=== PATIENT | female | born 1965 | race Caucasian/White ===

== ENCOUNTER → 2017-09-17 16:44 | Outpatient (CLI) | payer OTHER | END | disposition home or self-care (01) | LOC: D.MAMMO 16:00 | DX: Z12.31 Encounter for screening mammogram for malignant neoplasm of breast (principal) ==

== ENCOUNTER → 2017-11-07 19:38 | Outpatient (CLI) | payer OTHER | END | disposition home or self-care (01) | LOC: D.MAMMO 14:00 | DX: M41.9 Scoliosis, unspecified (principal) ==

== ENCOUNTER 2018-06-02 08:00 | Outpatient (CLI) | payer OTHER | END 2018-06-02 09:00 | disposition home or self-care (01) | LOC: D.MAMMO 08:00 | DX: R92.8 Other abnormal and inconclusive findings on diagnostic imaging of breast (principal) ==

== ENCOUNTER 2019-06-30 10:49 | Inpatient (IN) | payer OTHER ==
[~2019-06-30] VITALS: Ht 165.1 cm; Wt 100.0 kg
[2019-06-30] VITALS (7 sets, daily range): BP systolic 99–116; BP diastolic 58–69; Ht 165.1 cm; Wt 100.0 kg
[2019-06-30 11:33] LABS: CALC OSMOLALITY 272 mosm/kg (275-300); CALCIUM 8.6 mg/dL (8.5-10.1); CHLORIDE - SERUM 105 mmol/L (98-107); CREATININE - SERUM 0.7 mg/dL (0.6-1.3); GLUCOSE 110 mg/dL (74-106); SODIUM 137 mmol/L (136-145); UREA NITROGEN 8 mg/dL (7-18); eGFR NON AFRICAN AMERICAN > 90 mL/min (90-120)
[2019-06-30 11:39] LABS: ALBUMIN 3.3 g/dL (3.4-5.0); ALKALINE PHOSPHATASE 80 U/L (30-120); ALT (SGPT) 29 U/L (10-68); BILIRUBIN - TOTAL 0.22 mg/dL (0.2-1.3); PROTEIN - SERUM 7.3 g/dL (6.4-8.2)
[2019-06-30 11:44] LABS: BASOPHILS 0.2 % (0-2); EOSINOPHILS 0.2 % (0-7); HEMATOCRIT 41.6 % (36.0-48.0); HEMOGLOBIN 13.7 g/dL (12-16); IMMATURE GRANULOCYTES 0.2 % (0-5); LYMPHOCYTES 9.4 % (15-50); MCH 31.8 pg (26.0-34.0); MCHC 32.9 g/dL (31.0-37.0); MCV 96.5 fL (80.0-100.0); MEAN PLATELET VOLUME 11.2 fL (7.4-10.4); MONOCYTES 8.7 % (2-11); NEUTROPHILS 81.3 % (40-80); PLATELET COUNT 165 10x3/uL (130-400); RBC 4.31 10x6/uL (4.00-5.40); WBC 5.9 10x3/uL (4.8-10.8)
--- NOTE | 2019-06-30 12:57 | NUR ---
NASAL SWAB OBTAINED,, LABELED AT BS AND SENT TO LAB
--- NOTE | 2019-06-30 13:27 | NUR ---
TO CT VIA STRETCHER WITH ARMED GUARD
--- NOTE | 2019-06-30 14:20 | NUR ---
BC'S DRAWN X 2 PER TRAUMA THERAPIST THEN ABCHANELL INITIATED
--- NOTE | 2019-06-30 15:03 | NUR ---
REPORT TO FAY RN
--- NOTE | 2019-06-30 16:30 | NUR ---
AZITHROMYCIN 500MG IVPB COMPLETED ON 06/30/19 @ 8425
--- NOTE | 2019-06-30 17:10 | NUR ---
PT TRANSPORTED TO ROOM #2226, CONDITION STABLE. NS INFUSING 2 100 ML/HR UPON TRANSPORT TO ROOM
[2019-06-30] MEDS ORDERED: LOVASTATIN20 MG PO (17:24)
[2019-06-30] MEDS ORDERED: LEVOTHYROXINE137 MCG PO (17:24)
[2019-07-01 02:53] VITALS: BP 90/42
--- NOTE | 2019-07-01 03:42 | NUR ---
PT RESTING IN BED. EYES CLOSED. NO SIGNS OF DISTRESS. BREATHING EVEN AND UNLABORED. IV SITE LT AC DRESSING CLEAN DRY AND INTACT. NO SIGNS OF INFECTON OR INFULTRATION. BOWEL SOUNDS ACTIVE. SKIN CLEAN DRY AND INTACT. 2LO2 NASAL CANNULA. WILL CONTINUE PLAN OF CARE. CALL LIGHT IN REACH. BED LOWERED AND LOCKED. BED RAILS UPX2.
--- NOTE | 2019-07-01 05:03 | NUR ---
I have reviewed this patient and I concur with the Shift Assessment completed by the Licensed Practical Nurse today this shift.
[2019-07-01 05:57] VITALS: BP 117/63
--- NOTE | 2019-07-01 07:59 | NUR ---
ALERT AND ORIENTED. LLL DIMINISHED. HEART SOUNDS S1 AND S2 HEARD IN ALL YEUNG. BOWEL SOUNDS ACTIVE X 4. SKIN INTACT WITHOUT REDNESS. O2 IN PLACE AT 2L NC. IV TO LEFT AC PATENT WITHOUT REDNESS. BED LOW. CALL RAMIREZ AND PERSONAL ITEMS IN REACH. WILL CONTINUE TO MONITOR.
--- NOTE | 2019-07-01 08:17 | HP ---
PATIENT: KAREN BURGESS MEDICAL RECORD: [id number] ACCOUNT: [id number] LOCATION:[id number] : 63 ADMISSION DATE: 06/30/19 PCP: POPPY ESCAMILLA MD HISTORY AND PHYSICAL EXAMINATION DATE OF ADMISSION: 06/30/2019 CHIEF COMPLAINT: "I feel crappy." HISTORY OF PRESENT ILLNESS: This is a 54-year-old female who went to a local walk-in clinic today. She states she had acute onset of feeling really bad yesterday. She had a temperature up to 102. She felt bad, stayed in bed, went to a walk-in clinic on [facility] today. They did a flu swab there that was negative. Her O2 sat was reportedly 89%. She was short of breath. She was sent to the ER today where her influenza test was again negative. Blood work was fairly normal. D-dimer was a little elevated at 0.7. She had a CTA of her chest with PE protocol showing no PE, but there was minimal infiltrate in the left upper lobe consistent with early pneumonia and with her shortness of breath, cough and generalized malaise. She is admitted for left upper lobe pneumonia. PAST MEDICAL AND SURGICAL HISTORY: Hypothyroidism. She has had high cholesterol in the past. She has scoliosis. PAST SURGICAL HISTORY: Cholecystectomy, June fundoplication. ALLERGIES: CODEINE CAUSED HER THROAT TO CONSTRICT. CURRENT MEDICATIONS: Lovastatin 20 mg daily and levothyroxine 137 mcg daily. HABITS: Does not smoke, drink or partake of illicit drug use. SOCIAL HISTORY: She is , lives alone. FAMILY HISTORY: Father is alive with prostate cancer. No diabetes. No heart disease. Mother is alive with no diabetes, no heart disease or cancer. REVIEW OF SYSTEMS: GENERAL: No major weight changes. HEENT: No particular sinus or allergy problems. RESPIRATORY: No history of COPD, asthma or emphysema. CARDIAC: No history of coronary artery disease, chest pain or palpitations. GASTROINTESTINAL: She has had reflux and had a June fundoplication for that. GENITOURINARY: No significant problems there. MUSCULOSKELETAL: No significant problems there. NEUROLOGIC: No migraines or seizures. PSYCHIATRIC: Denies depression or melancholia. PHYSICAL EXAMINATION: VITAL SIGNS: Temperature 98.1, pulse 86, respirations 18, blood pressure 113/69, O2 sat is 91%. GENERAL: She is awake and alert. She does not appear to be in acute distress at this time. SKIN: Warm and dry. HEENT: Grossly within normal limits. HISTORY AND PHYSICAL [id number] KAREN BURGESS NECK: Supple. No JVD or bruit. HEART: Regular rate and rhythm without murmur. LUNGS: Clear. No wheeze. ABDOMEN: Obese, soft, nontender. EXTREMITIES: No edema. LABORATORY DATA: CBC with a white count of 5900, hemoglobin 13.7, hematocrit 41.6, and 81% neutrophils. Basic metabolic panel is all normal. Liver functions are all normal. D-dimer elevated at 0.70. CTA chest with PE protocol shows no PE. There is minimal infiltrate and left upper lobe consistent with early pneumonitis. ASSESSMENT: 1. Pneumonia. 2. Hypoxia. PLAN: She is admitted for IV antibiotics, respiratory care. Other tests or procedures as warranted. TRANSINT:[id number] Voice Confirmation ID: [id number] DOCUMENT ID: [id number] POPPY ESCAMILLA MD at 0817 CC: [id number] DICTATION DATE: 06/30/191948 AIRCRAFT FUSELAGE FRAMER: 06/30/192041 ADM IN [facility] [address] [id number]
[2019-07-01 09:34] LABS: BASOPHILS 0 % (0-2); EOSINOPHILS 0 % (0-7); HEMATOCRIT 37.8 % (36.0-48.0); IMMATURE GRANULOCYTES 0.7 % (0-5); LYMPHOCYTES 18.3 % (15-50); MCH 31.4 pg (26.0-34.0); MCHC 31.7 g/dL (31.0-37.0); MEAN PLATELET VOLUME 11.1 fL (7.4-10.4); MONOCYTES 5.9 % (2-11); NEUTROPHILS 75.1 % (40-80); PLATELET COUNT 137 10x3/uL (130-400); RBC 3.82 10x6/uL (4.00-5.40); RDW 14.5 % (11.5-14.5); WBC 4.2 10x3/uL (4.8-10.8)
[2019-07-01 09:37] VITALS: BP 114/77
[2019-07-01 09:53] LABS: CALC OSMOLALITY 283 mosm/kg (275-300); CALCIUM 8.1 mg/dL (8.5-10.1); CARBON DIOXIDE 27.1 mmol/L (21.0-32.0); CHLORIDE - SERUM 108 mmol/L (98-107); CREATININE - SERUM 0.6 mg/dL (0.6-1.3); GLUCOSE 119 mg/dL (74-106); SODIUM 143 mmol/L (136-145); UREA NITROGEN 8 mg/dL (7-18); eGFR NON AFRICAN AMERICAN > 90 mL/min (90-120)
--- NOTE | 2019-07-01 13:00 | NUR ---
IV OCCLUDED TO TO LEFT AC. RESITED TO RFA AFTER ONE ATTEMPT WITH 22 GAUGE.
[2019-07-01 17:32] VITALS: BP 114/73
--- NOTE | 2019-07-01 18:21 | NUR ---
RESTING IN BED. DENIES NEEDS. BED LOW. CALL RAMIREZ AND PERSONAL ITEMS IN REACH.
[2019-07-01 22:12] VITALS: BP 137/73
--- NOTE | 2019-07-02 04:45 | NUR ---
PT RESTING IN BED. EYES CLOSED. NO SIGNS OF DISTRESS. BREATHING EVEN AND UNLABORED. IV SITE RT FA DRESSING CLEAN DRY AND INTACT. NO SIGNS OF INFECTION OR INFULTRATION. 2LO2 NASAL CANNULA. BOWEL SOUNDS ACTIVE. SKIN CLEAN DRY AND INTACT. WILL CONTINUE PLAN OF CARE. CALL LIGHT IN REACH. BED LOWERED AND LOCKED. BED RAILS UPX2.
[2019-07-02 04:46] VITALS: BP 115/64
--- NOTE | 2019-07-02 05:00 | NUR ---
I have reviewed this patient and I concur with the Shift Assessment completed by the Licensed Practical Nurse today this shift.
--- NOTE | 2019-07-02 08:40 | NUR ---
PT SITTING UP IN BED. PT SOB WITH EXCERTION. O2 @ 2L NC IN PLACE. PT DENIES PAIN AT THIS TIME. IV TO RIGHT FOREARM WITH NS @ KVO INFUSING VIA PUMP. SITE WITHOUT REDNESS OR EDEMA. DENIES FURTHER NEEDS AT THIS TIME. CL WITHIN REACH. ENCOURAGED TO CALL WITH NEEDS. CONTINUE POC
[2019-07-02 09:16] VITALS: BP 134/69
[2019-07-02 12:26] VITALS: BP 117/79
[2019-07-02 17:35] VITALS: BP 130/76
--- NOTE | 2019-07-02 20:00 | NUR ---
PATIENT RESTING IN BED WITH FAMILY AT BEDSIDE. NO S/S OF DISTRESS AT THIS TIME. NO C/O AT THIS TIME. PATIENT IS ON 2.5L OF 02 NASAL CANNULA. PATIENT HAS RIGHT FOREARM NORMAL SALINE @ 20 ML/HR. PATIENT HAS A HEART MONITOR: 78 BPM NORMAL SINUS RYTHM. PATIENT HAS LEFT LOWER LOBE PNEUMONIA. CALL LIGHT IN PLACE. WILL CONTINUE TO MONITOR.
[2019-07-02 23:12] VITALS: BP 106/71
--- NOTE | 2019-07-03 04:15 | NUR ---
I have reviewed this patient and I concur with the Shift Assessment completed by the Licensed Practical Nurse today this shift.
[2019-07-03 04:35] VITALS: BP 102/60
[2019-07-03 07:55] VITALS: BP 101/50
--- NOTE | 2019-07-03 09:00 | NUR ---
ALERT AND ORIENTED X4. LUNGS DIMINISHED TO LLQ POSTERIOR WITH NON PRODUCTIVE COUGH. TELEMETRY INTACT.IV INFILTRATED TO RTL FOREARM AND RESITED. HRRR AND DENEIS ANY PAIN OR DISCOMFORT. ENCOURAGED TO USE CALL LIGHT FOR ASSIST.
[2019-07-03 09:21] VITALS: BP 117/69
[2019-07-03 13:12] VITALS: BP 133/70
[2019-07-03 16:24] VITALS: BP 117/70
[2019-07-03 19:30] VITALS: BP 115/73
--- NOTE | 2019-07-03 20:00 | NUR ---
PATIENT RESTING IN BED WITH FAMILY AT BEDSIDE. NO S/S OF DISTRESS. NO C/O AT THIS TIME. PATIENT IS ON 2L OF O2 NASAL CANNULA. PATIENT HAS NO IV. PATIENT HAS LIMA PNEUMONIA. PATIENT BECOMES SOB WHEN UP AND WALKING. PATIENT IN ON TELEMETRY 93 BPM NORMAL SINUS. PATIENT'S RIGHT FOREARM IS RED AND SWOLLEN FROM PAST INFILTRATED IV. CALL LIGHT IN PLACE. WILL CONTINUE TO MONITOR.
[2019-07-04 00:30] VITALS: BP 108/67
--- NOTE | 2019-07-04 02:42 | NUR ---
I have reviewed this patient and I concur with the Shift Assessment completed by the Licensed Practical Nurse today this shift.
[2019-07-04 05:00] VITALS: BP 126/80
--- NOTE | 2019-07-04 08:04 | NUR ---
ALERT AND ORIENTED X4. PATIENT STATED DIDN'T REST WELL. NONPRODUCTIVE COUGH NOTED WITH BREATH SOUNDS DIMINISHED X4 ANTERIOR. ENCOURAGED TO AMBULATE AND OOB. INSTRUCTED ON BREATHING EXERCISES. TELEMETRY INTACT. O2 2L N/C. DENEIS ANY PAIN OR DISCOMFORT AT THIS TIME AND ENCOURAGED TO USE CALLL IGHT FOR ASSSIT.
[2019-07-04 08:37] VITALS: BP 127/78
[2019-07-04 13:13] VITALS: BP 119/68
[2019-07-04 16:18] VITALS: BP 116/71
[2019-07-04 19:58] VITALS: BP 111/60
--- NOTE | 2019-07-04 20:00 | NUR ---
PATIENT RESTING IN BED WITH EYES CLOSED. NO S/S OF ACUTE DISRESS. NO C/O AT THIS TIME. PATIENT HAS IV ACCESS IN RIGHT HAND NORMAL SALINE KVO. IV IS PATENT WITHOUT REDNESS, SWELLING, OR TENDERNESS. PATIENT IS ON 2L OF O2 NASAL CANNULA. PATIENT IS ON TELEMETRY 76 BPM SINUS RYTHM. PATIENT IS SOB WHEN STANDING UP. CALL LIGHT IN PLACE. WILL CONTINUE TO MONITOR.
[2019-07-05] VITALS: BP 122/70
--- NOTE | 2019-07-05 03:00 | NUR ---
I have reviewed this patient and I concur with the Shift Assessment completed by the Licensed Practical Nurse today this shift.
[2019-07-05 04:00] VITALS: BP 111/64
[2019-07-05 08:40] VITALS: BP 111/72
--- NOTE | 2019-07-05 09:00 | NUR ---
ALERT AND OREINTED X4. LUNGS CTA WITH INCREASE EFFERT NOTED WITH ASSIST OF FLUTTER VALVE AND INCENTIVE SPIROMETER. O2 SAT 94% WITH O2 DECREASED TO 1 LITER. HRRR AND DENEIS ANY CHEST PAIN OR DISCOMFORT. STATES FEELS BETTER THIS MORNING.TELEMETRY INTACT. IV TO RT. HAND WITH NO S/S OF INFECTION/INFILTRATION NOTED.
--- NOTE | 2019-07-05 09:00 | NUR ---
ALERT AND ORIENTED X4. DENIES ANY ABDOMINAL PAIN OR DISCOMFORT BUT DOES HAE CHRONIC BACK PAIN WHICH IS MANAGED WITH DURAGESIC PATCH, MORPHINE PRN AND WARM COMPRESSES TO BACK WHICH IS EFFECTIVE. SCD'S INTACT WHILE IN BED. IVF INFUSING AT PRESCRIBED RATE TO LEFT F/A. ENCOURAGED TO USE CALL LIGHT FOR ASSSIT.
[2019-07-05 12:33] VITALS: BP 175/61
[2019-07-05] MEDS ORDERED: MUCINEX600 MG PO (12:55)
[2019-07-05] MEDS ORDERED: Tessalon Perle PO (12:55)
[2019-07-05] MEDS ORDERED: AUGMENTIN 875-11 TAB PO (12:57)
[2019-07-05] MEDS ORDERED: PREDNISONE20 MG PO (12:57)
--- NOTE | 2019-07-05 14:17 | MORECARE ---
CASE MANAGEMENT DISCHARGE SUMMARY PATIENT: KAREN BURGESS [place] UNIT: [id number] ADM DATE: 06/30/19 AGE: 54 : 63 SEX: F ROOM/BED: D.2226 AUTHOR: CHARMAINE GODINEZ PHYSICIAN: REFERRING PHYSICIAN: POPPY ESCAMILLA MD DATE OF SERVICE: 07/05/19 Discharge Plan Patient Name: KAREN BURGESS Facility: [facility]:[place] : 1965 Planned Disposition: Home Anticipated Discharge Date: Discharge Date: Expected LOS: Initial Reviewer: [email or web address] Initial Review Date: 07/05/2019 Generated: 07/05/19 3:16 pm Comments DCP- Discharge Planning Updated by [email or web address]: Jayda Bosch on 07/05/19 1:[address] Patient Name: KAREN BURGESS Admission Status: Elective Accout number: [id number] Admission Date: 06-30-2019 : 1965 Admission Diagnosis: Attending: POPPY ESCAMILLA Current LOS: 5 Anticipated DC Date: Planned Disposition: Home Primary Insurance: [employer] INS EXCHANGE Discharge Planning Comments: CM MET WITH PATIENT TO DISCUSS DC PLANNING/NEEDS AFTER OBTAINING VERBAL CONSENT. PLANS TO DC TO HOME. DENIES NEEDS FOR EQUIPMENT, HOME HEALTH OR REHAB. CM TO FOLLOW AND ASSIST NEEDED. STATES DAUGHTER TO [employer]. Video Tape Duplicator: Jayda Bosch DCPIA - Discharge Planning Initial Assessment Updated by [email or web address]: Jayda Bosch on 07/05/19 2:10 pm * Is the patient Alert and Oriented? Yes * PCP FRANCINE * Pharmacy [facility] * Preadmission Environment Home with Family * ADLs Independent * Additional services required to return to the preadmission environment? No * Can the patient safely return to the preadmission environment? Yes * Has this patient been hospitalized within the prior 30 days at any hospital? No Patient Name: KAREN BURGESS Page [id number] at 1417 All edits/amendments must be made on the electronic document DICTATION DATE: 07/05/19 1416 FRENCH EDGE OPERATOR: FRANKLIN 07/05/19 1416 RPT#: [id number] DC DATE: STATUS: ADM IN [facility] [address] [facility] [place] [address] END OF REPORT
--- NOTE | 2019-07-05 14:42 | NUR ---
RX FOR [facility] [place] DID NOT E SCRIBE. CALLED TO [facility] [address], SPOKE WITH PHARMACIST, GINA.
--- NOTE | 2019-07-05 16:32 | NUR ---
IV DISCONTINUED AND VERBALIZED UNDERSTANDING OF DISCHARGE INSTRUCTIONS. STABLE AT TIME OF DISCHARGE UNDER CARE OF DAUGHTER.
--- NOTE | 2019-07-08 15:18 | MORECARE ---
CASE MANAGEMENT DISCHARGE SUMMARY PATIENT: KAREN BURGESS UNIT: [id number] ADM DATE: 06/30/19 AGE: 54 : 63 SEX: F ROOM/BED: D.2226 AUTHOR: CHARMAINE GODINEZ PHYSICIAN: REFERRING PHYSICIAN: POPPY ESCAMILLA MD DATE OF SERVICE: 07/08/19 Discharge Plan Patient Name: KAREN BURGESS Facility: [facility]:[place] : 1965 Planned Disposition: Home Anticipated Discharge Date: Discharge Date: 07/05/2019 Expected LOS: 0 Initial Reviewer: [email or web address] Initial Review Date: 07/05/2019 Generated: 07/08/19 4:17 pm Comments DCP- Discharge Planning Updated by [email or web address]: Jayda Bosch on 07/05/19 1:[address] Patient Name: KAREN BURGESS Admission Status: Elective Accout number: [id number] Admission Date: 06-30-2019 : 1965 Admission Diagnosis: Attending: POPPY ESCAMILLA Current LOS: 5 Anticipated DC Date: Planned Disposition: Home Primary Insurance: [employer] INS EXCHANGE Discharge Planning Comments: CM MET WITH PATIENT TO DISCUSS DC PLANNING/NEEDS AFTER OBTAINING VERBAL CONSENT. PLANS TO DC TO HOME. DENIES NEEDS FOR EQUIPMENT, HOME HEALTH OR REHAB. CM TO FOLLOW AND ASSIST NEEDED. STATES DAUGHTER TO [employer]. Color Maker: Jayda Bosch DCPIA - Discharge Planning Initial Assessment Updated by [email or web address]: Jayda Bosch on 07/05/19 2:10 pm * Is the patient Alert and Oriented? Yes * PCP FRANCINE * Pharmacy [facility] * Preadmission Environment Home with Family * ADLs Independent * Additional services required to return to the preadmission environment? No * Can the patient safely return to the preadmission environment? Yes * Has this patient been hospitalized within the prior 30 days at any hospital? No Last DP export: 07/05/19 1:17 p Patient Name: KAREN BURGESS Page [id number] at 9188 All edits/amendments must be made on the electronic document DICTATION DATE: 02/1516 FIRER GLOST KILN: FRANKLIN 07/08/19 1517 RPT#: [id number] DC DATE:07/05/19 STATUS: DIS IN [facility] [address] [place] [address] END OF REPORT
== END 2019-07-05 16:33 | disposition home or self-care (01) | DRG 193 ==
LOC: D.ER 10:49 → D.MS 14:16
PROVIDERS: Family Medicine; ADMIT Family Medicine; ATTEND Family Medicine
DX: J18.9 Pneumonia, unspecified organism (principal); J96.01 Acute respiratory failure with hypoxia; E03.9 Hypothyroidism, unspecified; M41.9 Scoliosis, unspecified